=== PATIENT | male | born 1995 | race Caucasian/White ===

== ENCOUNTER → 2018-11-21 | Outpatient (CLI) | payer OTHER ==
--- NOTE | 2018-11-21 10:13 | US ---
EXAMINATION TYPE: US abdomen complete DATE OF EXAM: 11/21/2018 COMPARISON: NONE CLINICAL HISTORY: R10.9abdominal pain, eleveated liver enzymes R94.5. abnormal labs. GB removed x 10 years ago. EXAM MEASUREMENTS: Liver Length: 14.0 cm CBD: 0.3 cm CHD: 0.3 cm Spleen: 11.3 cm Right Kidney: 9.6 x 5.5 x 3.4 cm Left Kidney: 9.9 x 4.7 x 5.4 cm Pancreas: wnl Liver: wnl Gallbladder: Surgically absent Evidence for sonographic Day's sign: neg CBD: wnl CHD: wnl Spleen: wnl Right Kidney: wnl Left Kidney: wnl Upper IVC: wnl Abd Aorta: No AAA visualized The liver is homogenous. The intrahepatic portion of the IVC and proximal abdominal aorta are within normal limits. Common bile duct is unremarkable. The visualized portions of the pancreas are homog enous. The spleen is unremarkable. Kidneys are symmetric and free of hydronephrosis. No renal lesi ons are seen. IMPRESSION: No distinct abnormality identified.
== END | disposition home or self-care (01) ==
LOC: RADUSWWP 09:47
PROVIDERS: ATTEND Family Medicine
DX: R10.9 Unspecified abdominal pain (principal); R74.8 Abnormal levels of other serum enzymes
CPT/HCPCS: 76700